=== PATIENT | male | born 1970 | race Caucasian/White ===

== ENCOUNTER 2019-03-18 15:17 | Outpatient (CLI) | payer OTHER, SELFPAY ==
--- NOTE | 2019-03-18 15:34 | XR_ITS ---
WS: [id number] LATERAL LUMBAR SPINE: 3 view. Lateral radiographs are performed in upright neutral, flexion and extension to the patient's toleranc e. HISTORY: POST LAMINECTOMY SYNDROME COMPARISON: 06/09/2017 Very slight straightening of the normal lumbar lordosis. Less than 2 mm retrolisthesis of L3 with no change during flexion or extension. No instability is demonstrated. There is moderate disc space narr owing at L5-S1 and mild at L4-5. Mild progression since the prior examination. XR/XR lumbar spine f/e only [id number] IMPRESSION: 1. No lumbar spine instability. 2. Degenerative disc disease at L4-5 and L5-S1. Mild progression since 06/10/19 18.
== END 2019-03-18 15:18 | disposition home or self-care (01) ==
PROVIDERS: Family Provider Emergency Medicine Emergency Medical Services; PCP Emergency Medicine Emergency Medical Services; Visit Provider Nurse Practitioner
DX: M96.1 Postlaminectomy syndrome, not elsewhere classified (principal); M47.897 Other spondylosis, lumbosacral region
CPT/HCPCS: 72120

== ENCOUNTER → 2021-05-06 14:48 | Outpatient (BNVA) | payer OTHER, SELFPAY | PROVIDERS: Family Provider Emergency Medicine Emergency Medical Services; PCP Family Medicine; Visit Provider Internal Medicine | DX: R00.1 Bradycardia, unspecified (principal) | CPT/HCPCS: 93225 ==

== ENCOUNTER → 2021-06-08 12:13 | Outpatient (BNVA) | payer OTHER, SELFPAY | PROVIDERS: Family Provider Emergency Medicine Emergency Medical Services; PCP Family Medicine; Visit Provider Internal Medicine | DX: R00.1 Bradycardia, unspecified (principal); I10 Essential (primary) hypertension; G47.30 Sleep apnea, unspecified; R00.2 Palpitations | CPT/HCPCS: 93005; 93229; 99204 ==

== ENCOUNTER 2021-07-07 08:03 | Outpatient (CLI) | payer OTHER, SELFPAY ==
--- NOTE | 2021-07-07 08:30 | USCV_ITS ---
Leonides Otoniel Age: 51 Gender: M : 1970 Exam Date: 07/07/2021 08:27 Ordering Phys: Chadd Luis M.D ([email or web address]) Technologist: DEANNE [place] [facility] [place]: intermittent chest heaviness, light-headedness x 5 months. No hx cardiac intervention per patient. No priors. BP: / HR: 48 Rhythm: Sinus bradycardia Technical Quality: Adequate MEASUREMENTS (Male / Female) Normal Values 2D ECHO LV Diastolic Diameter PLAX 5.0 cm 4.2 - 5.9 / 3.9 - 5.3 cm LV Systolic Diameter PLAX 3.2 cm IVS Diastolic Thickness 1.1 cm 0.6 - 1.0 / 0.6 - 0.9 cm IVS Systolic Thickness 1.8 cm LVPW Diastolic Thickness 1.0 cm 0.6 - 1.0 / 0.6 - 0.9 cm LVPW Systolic Thickness 1.5 cm LVOT Diameter 2.2 cm LV Ejection Fraction 2D Teich 65.6 % LV Ejection Fraction MOD 2C 63.8 % LV Ejection Fraction 2C AL 62.6 % LA Diameter 3.9 cm LA Width 3.8 cm LA Height 5.5 cm RA Width 4.4 cm RA Height 5.0 cm Aorta at Sinotubular Diameter 3.4 cm M-MODE Aortic Annulus Diameter 3.1 cm LA Ao Ratio MM 1.2 MV E Point Septal Separation 0.3 cm DOPPLER AV Peak Velocity 105.0 cm/s LVOT Peak Velocity 101.0 cm/s AV Area Cont Eq vti 3.5 cm squared AV Area Cont Eq pk 3.7 cm squared MV Peak Velocity 87.0 cm/s MV Area PHT 3.5 cm squared Mitral E to A Ratio 1.0 MV E' Velocity 49.5 cm/s Mitral E to MV E' Ratio 8.5 Mitral E to LV E' Lateral Ratio 7.0 Mitral E to LV E' Septal Ratio 11.0 TR Peak Velocity 204.7 cm/s TR Peak Gradient 16.8 mmHg TV Peak E Velocity 44.0 cm/s PV Peak Velocity 88.0 cm/s FINDINGS Left Ventricle Normal left ventricular size. LV systolic function is normal with EF of 55-60%. No regional wall motion abnormalities. Diastolic function is normal Right Ventricle The right ventricle is normal in size and function. Right Atrium The right atrium is normal in size. Left Atrium The left atrium is normal in size. Mitral Valve Structurally normal mitral valve without significant stenosis or prolapse. There is trace mitral regurgitation. Aortic Valve Structurally normal aortic valve without significant sclerosis or stenosis. There is no aortic regurgitation. Tricuspid Valve Structurally normal tricuspid valve without significant stenosis. Trace tricuspid regurgitation. Pulmonary artery systolic pressure is normal. Pulmonic Valve Structurally normal pulmonic valve without significant stenosis. There is no pulmonic regurgitation. Pericardium Normal pericardium without effusion. Aorta Normal ascending aorta dimension. IVC CONCLUSIONS LV systolic function is normal with EF of 55-60% Diastolic function is normal Trace mitral regurgitation Trace tricuspid regurgitation No comparison studies are available Chadd Luis MD (Electronically Signed) Final Date: 12 Jul 2021 17:57 S
== END 2021-07-07 08:04 | disposition home or self-care (01) ==
PROVIDERS: Family Provider Emergency Medicine Emergency Medical Services; PCP Family Medicine; Visit Provider Internal Medicine
DX: R07.9 Chest pain, unspecified (principal)
CPT/HCPCS: 93306

== ENCOUNTER → 2021-07-20 15:18 | Outpatient (BNVA) | payer OTHER, SELFPAY | PROVIDERS: Family Provider Emergency Medicine Emergency Medical Services; PCP Family Medicine; Visit Provider Internal Medicine | DX: R00.2 Palpitations (principal); R00.1 Bradycardia, unspecified; I10 Essential (primary) hypertension; G47.30 Sleep apnea, unspecified | CPT/HCPCS: 99213 ==